=== PATIENT | male | born 1980 | race Two or more races ===

== ENCOUNTER 2022-11-12 14:56 | Emergency (ER) | payer MEDICAID ==
[~2022-11-12] VITALS: Ht 190.5 cm; Wt 90.0 kg
[2022-11-12 15:55] VITALS: BP 155/106
[2022-11-12] MEDS ORDERED: FLEC100T PO ×2 (16:39→17:52)
[2022-11-12] MEDS ORDERED: METO-159 PO ×2 (16:39→17:52)
== END 2022-11-12 17:52 | disposition home or self-care (01) ==
LOC: ER 14:56
DX: I10 Essential (primary) hypertension (principal); I49.9 Cardiac arrhythmia, unspecified; Z76.0 Encounter for issue of repeat prescription; Z79.899 Other long term (current) drug therapy; Z88.8 Allergy status to other drugs, medicaments and biological substances